=== PATIENT | female | born 1980 | race Caucasian/White ===

== ENCOUNTER 2019-04-07 12:34 | Inpatient (IN) | payer OTHER ==
[~2019-04-07] VITALS: Ht 167.6 cm; Wt 63.4 kg
[2019-04-08 12:15] VITALS: BP 96/58
== END 2019-04-08 19:54 | disposition home or self-care (01) | DRG 417 ==
LOC: 4NOR 13:10
PROVIDERS: ADMIT Surgery; ATTEND Surgery
PROC: 0FT44ZZ Resection of Gallbladder, Percutaneous Endoscopic Approach (ICD-10-PCS; principal; 2019-04-07)
DX: K80.12 Calculus of gallbladder with acute and chronic cholecystitis without obstruction (principal); K85.90 Acute pancreatitis without necrosis or infection, unspecified; N64.4 Mastodynia; Z90.49 Acquired absence of other specified parts of digestive tract; Z82.61 Family history of arthritis; Z80.42 Family history of malignant neoplasm of prostate; Z83.3 Family history of diabetes mellitus; Z87.891 Personal history of nicotine dependence
CPT/HCPCS: 36415; 74181; 80053; 81025; 82247; 82248; 83690; 85025; 88304; 93005; C1729; G0378; J0171; J0690; J1100; J1170; J1885; J2250; J2405; J2543; J2704; J2710; J3010; J3490; C1760; J0330; J7120